=== PATIENT | male | born 1985 | race Caucasian/White ===

== ENCOUNTER 2017-05-08 12:51 | Emergency (ER) | payer OTHER ==
[~2017-05-08 12:51] MED LIST: NAPR500 PO
[2017-05-08 12:59] VITALS: BP 164/99; PULSE 112; RESP 20; TEMP 99; O2SAT 96
[2017-05-08] MEDS ORDERED: CLINDAMYCIN INJ 900 MG in SODIUM CHLORIDE 0.9% INJ 100 ML IV ONE (14:00)
[2017-05-08] MEDS ORDERED: SODIUM CHLOR 0.9% 1000 ML INJ 1,000 ML IV ONE (14:00)
[2017-05-08] MEDS ORDERED: KETOROLAC TROMETHAMINE 30 MG/ML (IVP) VIAL IV PUSH ONE (14:00)
--- NOTE | 2017-05-08 14:03 | PD ---
HPI Chief Complaint: Skin Problem Time Seen by Provider: 13:39 Travel History International Travel<30 days: No Contact w/Intl Traveler<30days: No Traveled to known affect area: No History of Present Illness HPI 31-year-old male presents to the ED for evaluation less than 24-hour history of pain and redness of the left groin. Gradual onset. Pain is rated 6/10, constant, worsened by touch. No alleviating factors reported. The patient states that he thought he had an ingrown hair or pimple at the area that has worsened over time. He denies scrotal pain, fever, chills, nausea, vomiting, history of MRSA. He treated at home with Epsom salt bath and no improvement of symptoms. PFSH Past Medical History Anxiety: Yes Depression: Yes Cancer: No Diminished Hearing: No Psychiatric: Yes (depression) Seizures: No Thyroid Disease: No Ulcer: No Past Surgical History Other Surgery: Yes (BONE REMOVED FROM SKULL TO REPAIR CLEFT PALATE) Social History Alcohol Use: Yes (10-15 SHOTS NIGHTLY) Tobacco Use: Yes (04/27 PPD) Substance Use: Yes (MARIJUANNA OCC) Allergies-Medications (Allergen,Severity, Reaction): Coded Allergies: atomoxetine (Unverified Allergy, Unknown, GETS A RASH, 05/08/17) Reported Meds & Prescriptions Reported Meds & Active Scripts Active Clindamycin (Clindamycin HCl) 150 Mg Cap 450 Mg PO Q8HR 7 Days Clotrimazole Anti-Fungal Topical (Clotrimazole) 1% Cream 1 Applic TOPICAL BID 14 Days Review of Systems Except as stated in HPI: all other systems reviewed are Neg Physical Exam Narrative GENERAL: Well-nourished, well-developed white male in no acute distress. SKIN: Focused skin assessment warm/dry. SKIN: There is an indurated area in the left inner thigh which measures about 2 cm in diameter. No fluctuance. No pointing. No drainage. There is a large zone of warm, tender erythema around the area. No cellulitic streaking. No LAD of the groin. There is a erythematous, nonblanching, pustular, scattered rash in bilateral skin folds consistent with tinea cruris. HEAD: Normocephalic. EYES: No scleral icterus. No injection or drainage. NECK: Supple, trachea midline. No JVD or lymphadenopathy. CARDIOVASCULAR: Regular rate and rhythm without murmurs, gallops, or rubs. RESPIRATORY: Breath sounds equal bilaterally. No accessory muscle use. GASTROINTESTINAL: Abdomen soft, non-tender, nondistended. GENITOURINARY: Circumcised. Testes descended bilaterally without evidence of rotation. No lesions or erythema. No urethral discharge. No tenderness to palpation of the scrotum. Cremasteric reflex intact. MUSCULOSKELETAL: No cyanosis, or edema. BACK: Nontender without obvious deformity. No CVA tenderness. Data Data Last Documented VS Vital Signs Date Time Temp Pulse Resp B/P (MAP) Pulse Ox O2 Delivery O2 Flow Rate FiO2 05/08/17 12:59 99.0 112 20 164/99 (120) 96 Orders Orders ^ Insert Iv (05/08/17 13:58) Sodium Chlor 0.9% 1000 Ml Inj (Ns 1000 M (05/08/17 14:00) Clindamycin Inj (Cleocin Inj) (05/08/17 14:00) Ketorolac Inj (Toradol Inj) (05/08/17 14:00) MDM Medical Decision Making Medical Screen Exam Complete: Yes Emergency Medical Condition: Yes Differential Diagnosis Folliculitis versus abscess versus cellulitis versus other Narrative Course 31-year-old male presents to the ED for evaluation less than 24-hour history of pain and redness of the left groin. Gradual onset. The patient states that he thought he had an ingrown hair or pimple at the area that has worsened over time. He denies scrotal pain, fever, chills, nausea, vomiting, history of MRSA. Patient's tachycardic on presentation. Physical exam is consistent with cellulitis. There is an area of induration but I cannot feel a definite abscess or fluctuance. Patient also has small outbreak of tinea cruris in bilateral groins. IV was established. Patient was administered 1 L normal saline, 900 mg clindamycin, 30 mg Toradol IV. The area of cellulitis was marked. Patient's prescribed 450 mg clindamycin 3 times a day 7 days. He is also provided with clotrimazole cream. We discussed reasons to return to the ED. He indicated understanding of these instructions and is agreeable to the care plan. He is stable and discharged home. Diagnosis Primary Impression: Cellulitis of left lower extremity Additional Impression: Tinea cruris Referrals: [facility] Patient Instructions: Cellulitis (ED), General Instructions Additional Instructions: Rest, hydrate. Take every dose of antibiotic as they're prescribed until every pill is gone. Topical antifungals as prescribed. Follow-up with his clinic as discussed. Return to the ED for worsening symptoms or any urgent or emergent medical condition. Med/Other Pt SpecificInfo: Prescription(s) given Scripts Clindamycin (Clindamycin) 150 Mg Cap 450 MG PO Q8HR for Infection for 7 Days, CAP 0 Refills Prov: Fady Tong MD 05/08/17 Clotrimazole Topical (Clotrimazole Anti-Fungal Topical) 1% Cream 1 APPLIC TOPICAL BID for Fungal Infection for 14 Days, #1 TUBE 0 Refills Prov: Fady Tong MD 05/08/17 Disposition: 01 DISCHARGE HOME Condition: Stable Rachael Roberts May 08, 2017 14:02
[2017-05-08] MEDS ORDERED: CLIN150C14 PO (15:46)
[2017-05-08] MEDS ORDERED: CLOT1CRE6 TOPICAL (15:46)
[2017-05-09] MEDS ORDERED: CLIN150C14 PO (14:21)
== END 2017-05-08 16:04 | disposition home or self-care (01) ==
LOC: PHEFT 12:51
DX: L03.116 Cellulitis of left lower limb (principal); B35.6 Tinea cruris; F32.9 Major depressive disorder, single episode, unspecified; F17.200 Nicotine dependence, unspecified, uncomplicated
CPT/HCPCS: 96361; 96374; 96375; 99284; J1885; J7030

== ENCOUNTER 2017-05-09 13:01 | Emergency (ER) | payer OTHER ==
[~2017-05-09] VITALS: Ht 177.8 cm; Wt 113.0 kg
[~2017-05-09 13:01] MED LIST changes: +CLIN150C14 PO; +CLOT1CRE6 TOPICAL
[2017-05-09 13:20] VITALS: BP 168/105; PULSE 116; RESP 16; TEMP 98.8; O2SAT 96
[2017-05-09] MEDS ORDERED: CLINDAMYCIN PHOS 900 MG/6 ML VIAL IM ONE (14:15)
--- NOTE | 2017-05-09 14:20 | PD ---
HPI Chief Complaint: Skin Problem Time Seen by Provider: 13:57 Travel History International Travel<30 days: No Contact w/Intl Traveler<30days: No Traveled to known affect area: No History of Present Illness HPI 31-year-old male presents to the ED for reevaluation of cellulitis of the left lower extremity. He states that the redness has moved beyond the area of demarcation from yesterday. He denies fevers, chills, nausea, vomiting, numbness, tingling, weakness, limitation of range of motion of the extremity. Patient states that he has not filled the antibiotic prescription or taken the medication that was prescribed yesterday. He states that when he went to [employer] the medication's insurance was declining any does not have the money to pay for the medication. PFSH Past Medical History Anxiety: Yes Depression: Yes Cancer: No Cardiovascular Problems: No Diabetes: No Diminished Hearing: No Psychiatric: Yes (depression) Immunizations Current: Yes Seizures: No Thyroid Disease: No Ulcer: No Past Surgical History Other Surgery: Yes (BONE REMOVED FROM SKULL TO REPAIR CLEFT PALATE) Social History Alcohol Use: Yes (10-15 SHOTS NIGHTLY) Tobacco Use: Yes (04/27 PPD) Substance Use: Yes (MARIJUANNA OCC) Allergies-Medications (Allergen,Severity, Reaction): Coded Allergies: atomoxetine (Unverified Allergy, Unknown, GETS A RASH, 05/09/17) Reported Meds & Prescriptions Reported Meds & Active Scripts Active Clindamycin (Clindamycin HCl) 150 Mg Cap 450 Mg PO Q8HR 7 Days Clotrimazole Anti-Fungal Topical (Clotrimazole) 1% Cream 1 Applic TOPICAL BID 14 Days Review of Systems Except as stated in HPI: all other systems reviewed are Neg Physical Exam Narrative GENERAL: Well-nourished, well-developed white male in no acute distress. SKIN: Focused skin assessment warm/dry. There is warm erythema cellulitis of the left groin area. This has moved approximately 1 cm beyond the previous area of demarcation. No fluctuance, induration is noted. The erythema appears improved as compared to yesterday's exam. HEAD: Normocephalic. EYES: No scleral icterus. No injection or drainage. NECK: Supple, trachea midline. No JVD or lymphadenopathy. CARDIOVASCULAR: Regular rate and rhythm without murmurs, gallops, or rubs. RESPIRATORY: Breath sounds equal bilaterally. No accessory muscle use. GASTROINTESTINAL: Abdomen soft, non-tender, nondistended. MUSCULOSKELETAL: No cyanosis, or edema. BACK: Nontender without obvious deformity. No CVA tenderness. Data Data Last Documented VS Vital Signs Date Time Temp Pulse Resp B/P (MAP) Pulse Ox O2 Delivery O2 Flow Rate FiO2 05/09/17 14:34 106 16 176/90 (118) 97 Room Air 05/09/17 13:20 98.8 Orders Orders Clindamycin Inj (Cleocin Inj) (05/09/17 14:15) [facility] Medical Decision Making Medical Screen Exam Complete: Yes Emergency Medical Condition: Yes Differential Diagnosis Cellulitis versus return to recheck versus noncompliance versus other Narrative Course 31-year-old male presents to the ED for reevaluation of cellulitis of the left lower extremity. He states that the redness has moved beyond the area of demarcation from yesterday. He denies fevers, chills, nausea, vomiting, numbness, tingling, weakness, limitation of range of motion of the extremity. Patient states that he has not filled the antibiotic prescription due to insurance difficulties. Vitals reviewed. On physical exam the cellulitis has moved slightly beyond the area of demarcation but overall it is less deeply red and improved. I rewrote the clindamycin prescription, provided the patient with a good Rx card as well as a coupon to fill the medication for $33 at [facility]. Patient states that he is able to afford this medication. He is administered 900 mg clindamycin IM. He is instructed to fill the antibiotics and start taking them today. Discussed reasons to return to the ED. He indicated understanding of instructions and is agreeable to the care plan. The patient is stable and discharged home. 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 Follow-up as previously discussed. Return to the ED for worsening symptoms or any urgent or emergent medical condition. Scripts Clindamycin (Clindamycin) 150 Mg Cap 450 MG PO Q8HR for Infection for 7 Days, CAP 0 Refills Prov: Umair Greer MD 05/09/17 Disposition: 01 DISCHARGE HOME Condition: Stable Rachael Roberts May 09, 2017 14:20
[2017-05-09] MEDS ORDERED: CLIN150C14 PO (14:21)
[2017-05-09 14:34] VITALS: BP 176/90; PULSE 106; RESP 16; O2SAT 97
== END 2017-05-09 14:59 | disposition home or self-care (01) ==
LOC: PHED 13:01
DX: L03.116 Cellulitis of left lower limb (principal); F41.8 Other specified anxiety disorders; F17.210 Nicotine dependence, cigarettes, uncomplicated; F12.90 Cannabis use, unspecified, uncomplicated; Z91.14 Patient's other noncompliance with medication regimen
CPT/HCPCS: 96372

== ENCOUNTER 2017-05-10 18:30 | Emergency (ER) | payer OTHER ==
[~2017-05-10] VITALS: Ht 177.8 cm; Wt 113.6 kg
[~2017-05-10 18:30] MED LIST changes: -NAPR500 PO
[2017-05-10 18:32] VITALS: BP 157/101; PULSE 121; RESP 18; TEMP 98.2; O2SAT 98
--- NOTE | 2017-05-10 20:00 | PD ---
HPI Chief Complaint: Skin Problem Time Seen by Provider: 19:24 Travel History International Travel<30 days: No Contact w/Intl Traveler<30days: No Traveled to known affect area: No History of Present Illness HPI This is a 31-year-old male with cellulitis to the left thigh here for recheck. He is currently on clindamycin 450 mg 3 times a day. He denies fever or chills. Reports continued redness and erythema of the thigh. He reports he originally had difficulty getting the prescription filled and has subsequently only been on the antibiotics for 24 hours. He does not endorse worsening pain. The pain is exacerbated by palpation of the area and walking. Slightly relieved with rest. Symptom severity is moderate. PFSH Past Medical History Anxiety: Yes Depression: Yes Cancer: No Cardiovascular Problems: No Diabetes: No Diminished Hearing: No Psychiatric: Yes (depression) Immunizations Current: Yes Seizures: No Thyroid Disease: No Ulcer: No Past Surgical History Other Surgery: Yes (BONE REMOVED FROM SKULL TO REPAIR CLEFT PALATE) Social History Alcohol Use: Yes (10-15 SHOTS NIGHTLY) Tobacco Use: Yes (04/27 PPD) Substance Use: Yes ([employer] OCC) Allergies-Medications (Allergen,Severity, Reaction): Coded Allergies: atomoxetine (Unverified Allergy, Unknown, GETS A RASH, 05/09/17) Reported Meds & Prescriptions Reported Meds & Active Scripts Active Clindamycin (Clindamycin HCl) 150 Mg Cap 450 Mg PO Q8HR 7 Days Clotrimazole Anti-Fungal Topical (Clotrimazole) 1% Cream 1 Applic TOPICAL BID 14 Days Review of Systems Except as stated in HPI: all other systems reviewed are Neg General / Constitutional: No: Fever Eyes: No: Visual changes HENT: No: Headaches Cardiovascular: No: Chest Pain or Discomfort Respiratory: No: Shortness of Breath Gastrointestinal: No: Abdominal Pain Genitourinary: No: Dysuria Physical Exam Narrative GENERAL: Alert male. Nontoxic appearing. No distress. SKIN: Warm and dry. Large cellulitis to the left thigh medial aspect. The erythema is encompassed within the marked edges applied at his last visit. He has a 2 cm area of fluctuance in the center of the erythema. No drainage. HEAD: Normocephalic. EYES: No injection or drainage. NECK: Supple, trachea midline. CARDIOVASCULAR: Regular rate and rhythm GASTROINTESTINAL: Abdomen soft, non-tender, nondistended. MUSCULOSKELETAL: No cyanosis, or edema. Data Data Last Documented VS Vital Signs Date Time Temp Pulse Resp B/P (MAP) Pulse Ox O2 Delivery O2 Flow Rate FiO2 05/10/17 18:32 98.2 121 18 157/101 (119) 98 MDM Medical Decision Making Medical Screen Exam Complete: Yes Emergency Medical Condition: Yes Differential Diagnosis Abscess, cellulitis, wound recheck Narrative Course This is a 31-year-old male here with abscess/cellulitis to his left thigh. He denies fever, chills, worsening pain. The erythema is within the marked edges applied at his last visit. He now has a fluctuant abscess which was opened and drained here in the ER. He tolerated procedure well. He was instructed to continue clindamycin and follow up for recheck tomorrow. Diagnosis Primary Impression: Abscess Referrals: Primary Care Physician Departure Forms: Tests/Procedures, Work Release Enter return to work date: May 13, 2017 Additional Instructions: Continue the antibiotics as prescribed. Tylenol or ibuprofen as needed for pain. Wound packing should be removed in 2 days. Return to the emergency department if he developed fever, chills, increasing pain or redness. Disposition: 01 DISCHARGE HOME Condition: Stable CindyDanica URIOSTEGUI May 10, 2017 20:00
== END 2017-05-10 20:24 | disposition home or self-care (01) ==
LOC: NEPK 18:30
DX: L02.416 Cutaneous abscess of left lower limb (principal); B96.89 Other specified bacterial agents as the cause of diseases classified elsewhere; F17.210 Nicotine dependence, cigarettes, uncomplicated; F12.90 Cannabis use, unspecified, uncomplicated
CPT/HCPCS: 10060; 86403; 87070; 87185; 87205

== ENCOUNTER 2017-06-06 21:43 | Emergency (ER) | payer OTHER ==
[~2017-06-06] VITALS: Ht 177.8 cm; Wt 113.5 kg
[2017-06-06 21:44] VITALS: BP 159/103; PULSE 109; RESP 16; TEMP 98.8; O2SAT 97
[2017-06-06] MEDS ORDERED: BACT800T5 PO (23:06)
--- NOTE | 2017-06-06 23:08 | PD ---
HPI Chief Complaint: Bite or Sting Time Seen by Provider: 23:03 Travel History International Travel<30 days: No Contact w/Intl Traveler<30days: No Traveled to known affect area: No History of Present Illness HPI c/o 2 day h/o a red lump to back of left thigh, no drainage yet, redness to area present, denies any alleviating/aggravating factors...patient denies assoc factors of fever/cough/cp/backpain/abdpain/v/d/v/purple discoloration/ PFSH Past Medical History ADHD: Yes Anxiety: Yes Depression: Yes (HX OF) Cancer: No Cardiovascular Problems: No Diabetes: No Diminished Hearing: No Psychiatric: Yes (depression) Immunizations Current: Yes Seizures: No Thyroid Disease: No Ulcer: No Past Surgical History Other Surgery: Yes (BONE REMOVED FROM SKULL TO REPAIR CLEFT PALATE) Social History Alcohol Use: Yes (6-8 OF RUM DAILY) Tobacco Use: Yes (04/27 PPD) Substance Use: Yes (MARIJUANNA OCC) Allergies-Medications (Allergen,Severity, Reaction): Coded Allergies: atomoxetine (Unverified Allergy, Unknown, GETS A RASH, 06/06/17) Reported Meds & Prescriptions Reported Meds & Active Scripts Active Clindamycin (Clindamycin HCl) 150 Mg Cap 450 Mg PO Q8HR 7 Days Clotrimazole Anti-Fungal Topical (Clotrimazole) 1% Cream 1 Applic TOPICAL BID 14 Days Review of Systems General / Constitutional: No: Fever Eyes: No: Visual changes HENT: No: Headaches Cardiovascular: No: Chest Pain or Discomfort Respiratory: No: Shortness of Breath Gastrointestinal: No: Abdominal Pain Genitourinary: No: Dysuria Musculoskeletal: No: Pain Skin: Positive Lesions Neurologic: No: Weakness Psychiatric: No: Depression Endocrine: No: Polydipsia Hematologic/Lymphatic: No: Easy Bruising Physical Exam Narrative GENERAL: SKIN: Warm and dry. posterior prox thigh has a quarter diameter sized nonfluctuant, erythematous, firm, nondraining lump. HEAD: Atraumatic. Normocephalic. EYES: Pupils equal and round. No scleral icterus. No injection or drainage. ENT: No nasal bleeding or discharge. Mucous membranes pink and moist. NECK: Trachea midline. No JVD. CARDIOVASCULAR: Regular rate and rhythm. RESPIRATORY: No accessory muscle use. Clear to auscultation. Breath sounds equal bilaterally. GASTROINTESTINAL: Abdomen soft, non-tender, nondistended. MUSCULOSKELETAL: Extremities without clubbing, cyanosis, or edema. No obvious deformities. NEUROLOGICAL: Awake and alert. No obvious cranial nerve deficits. Motor grossly within normal limits. Five out of 5 muscle strength in the arms and legs. Normal speech. PSYCHIATRIC: Appropriate mood and affect; insight and judgment normal. Data Data Last Documented VS Vital Signs Date Time Temp Pulse Resp B/P (MAP) Pulse Ox O2 Delivery O2 Flow Rate FiO2 06/06/17 21:44 98.8 109 16 159/103 (121) 97 Room Air MDM Medical Decision Making Medical Screen Exam Complete: Yes Emergency Medical Condition: Yes Medical Record Reviewed: Yes Differential Diagnosis cellulitis v lymphangitis v abscess Narrative Course patient nontoxic and no lymphangitis or edema present, pt will be treated as outpt Diagnosis Primary Impression: cellulitis Patient Instructions: Cellulitis (ED), General Instructions Scripts Sulfamethoxazole-Trimethoprim (Bactrim DS) 800-160 Mg Tab 1 TAB PO BID for Infection, #20 TAB 0 Refills Prov: Karan Donaldson MD 06/06/17 Disposition: 01 DISCHARGE HOME Condition: Stable Karan Donaldson MD Jun 06, 2017 23:07
[2017-06-06] MEDS ORDERED: SULFAMETHOXAZOLE-TRIMETHOPRIM DS 800-160 MG TAB PO ONE (23:15)
== END 2017-06-06 23:35 | disposition home or self-care (01) ==
LOC: NEPD 21:43
DX: L03.116 Cellulitis of left lower limb (principal); F90.9 Attention-deficit hyperactivity disorder, unspecified type; F41.9 Anxiety disorder, unspecified; F17.200 Nicotine dependence, unspecified, uncomplicated; F12.90 Cannabis use, unspecified, uncomplicated
CPT/HCPCS: 99283